=== PATIENT | male | born 1955 | race Caucasian/White ===

== ENCOUNTER → 2016-06-15 | Outpatient (CLI) | payer MEDICARE, OTHER ==
[~2016-06-15] MED LIST: ASPIRIN EC81 MG PO; AUGMENTIN1 TA2 PO; BACTRIM DS 8001 TAB PO; BENICAR HCT 251 TAB PO; BENICAR40 MG PO; BOT OP; CALCIUM ACETAT667 MG PO; CARDURA 4MG TABL4 MG PO; CARVEDILOL 25MG25 MG PO; COREG3.125 MG PO; CYANOCOBAL1000 MCG/1 IM; CYCLOBENZAPRINE5 MG PO; DICLOFENAC SOD75 MG PO; DICYCLOMINE 10M10 MG PO; DOXYCYCLINE100 M1 PO; FLAGYL500 MG PO; FLOMAX 0.4MG C0.4 MG PO; FLONASE 50 MCG16 GM; GABAPENTIN 600600 MG PO; GABAPENTIN800 MG PO; HUMALOG 10100 UNITS/ SC; HUMULIN R100 UNITS/ SC; HYDRALAZINE HCL25 M1 PO; HYDROCHLOROTHIA25 M1 PO; IBUPROFEN800 MG PO; INSULIN RE100 UNITS/ SC; LANTUS INS100 UNITS/ SC; LASIX 40MG. TAB40 MG PO; LASIX40 MG PO; LASIX80 MG PO; LEVOTHYROXINE0.05 M3 PO; LOSARTAN POTAS100 MG PO; Monodox100 MG PO; NOVOLIN 70/30 710 ML SC; OMEPRAZOLE40 MG PO; OMNICEF 300 MG300 MG PO; PHENERGAN W/CO473 ML PO; PRILOSEC40 MG PO; TYLENOL W/CODEI1 TA2 PO; XANAX XR0.5 MG PO; XANAX0.5 MG PO; ZAROXOLYN5 MG PO; ZITHROMAX Z-PA250 M1 PO; ZYRTEC5 M2 PO; [UNRECOGNIZED DRUG - OTHER] OP; [UNRECOGNIZED DRUG - OTHER] SC
--- NOTE | 2016-06-21 10:38 | RADIOLOGY REPORT PS360 ---
MRI-UP EXT OTH THN JNT W/O-LT MRI LEFT HAND attention left first finger ORDERING PHYSICIAN : Derek Lozano MD PATIENT AGE: 61 years GENDER: Male INDICATION: CELLULITIS OF LT THUMB Severe diabetic diabetic blisters come up on hand every now and then. Pain in thumb symptoms 4 months. Increased Thumb pain with squeezing thumb. Bone hurts. TECHNIQUE: Multiplanar multisequence imaging 1.5 T MR no contrast COMPARISON: No plain film available for comparison FINDINGS This study is extremely limited. . Large patient. Patient had difficulty holding still motion of with multiple sequences repeated.. Suboptimal imaging with wraparound artifact and field distortion- limits conclusions they can be drawn . . Understand there is pain primarily at the thumb. There is some mild soft tissue edema of the thumb but it is relatively unimpressive by MR. May reflect minimal cellulitis. Upper normal signal is seen throughout the distal phalanx of thumb, but motion artifact and field distortion and wraparound artifact severely limiting conclusions here. I see no marrow replacement on the more optimal T1 images that would reflect prominent pathology of the distal phalanx replacing the normal yellow marrow., however there is slight increased normal signal within the bone of the distal phalanx noted on the water-weighted sequences.-. However the other phalanges also demonstrate increased signal at the distal phalanges of all fingers but particularly the index finger followed by the long finger which to be related to field distortion artifact.. With this Difficult to exclude osteomyelitis at distal phalanx thumb or index finger, but again the poor quality of images at the distal phalanx severely limited study and prohibit any definitive conclusion. May merely be artifact signal... Will discuss as may need to repeat imaging. Suggest plain films as next step. The proximal phalanx thumb & first metacarpal appear intact. . Metacarpals appear intact. There is minor edema at the midportion of the hand. Minimal nonexpansile medullary osseous lesion of some form is seen at the [id number] metacarpal. Possible enchondroma vs old fracture irregularity. This feature Measuring 12.5 mm length 4 mm wide. Again recommend plain films left hand and thumb but not available IMPRESSION: ...... 1. This is extremely limited due to artifacts from motion, field distortion, positioning and wrap around artifact. Suboptimal scan significantly limits conclusions 2. Thumb. The proximal phalanx first metacarpal appear satisfactory. Imaging severely limited at the distal phalanx, but suspect mild soft tissue edema. There is Upper normal signal at the marrow of distal phalanx thumb noted, but this same appearance also seen at the other phalanges & thus I suspect may merely reflect the field distortion artifact rather than early osteomyelitis. . No marrow replacement on T1 images to raise further concern regarding such. Unfortunately early, subtle osteomyelitis difficult to exclude on these poor quality images. As next up recommend plain films of left hand, & left thumb ( note: request please performed on the DR system down in ER suite.) No plain films of hand or thumb currently available in our PACS After these we may need to discuss options if desire further evaluation: Either 3 phase bone scan vs attempting repeat MRI 3. Osseous signal irregularity at the proximal fourth metacarpal incidentally noted. 12.5 mm length X 4 mm wide requires plain film correlation. Old healed fracture irregularity vs indolent enchondroma suspect on. MR, but plain film remains the rangel modality for evaluating bone lesions and thus recommend plain films left hip. .
== END ==
LOC: RAD 14:57
DX: L03.012 Cellulitis of left finger (principal)